=== PATIENT | female | born 1960 | race Caucasian/White ===

== ENCOUNTER 2016-03-18 16:18 | Emergency (ER) | payer BC ==
[~2016-03-18 16:18] MED LIST: MULTCAP PO; OMEP40CA2 PO; VESI10TA PO; [UNRECOGNIZED DRUG - CODE] TD; [UNRECOGNIZED DRUG - OTHER] PO
[2016-03-18 17:23] LABS: BASO % 0.3 % (0.0-1.0); EOS # 0.3 K/mm3 (0.0-0.50); EOS % 4.8 % (0.0-3.0); LARGE UNSTAINED CELL # 0.1 K/mm3 (0.0-0.4); LARGE UNSTAINED CELL % 1.8 % (0.0-4.0); LYMPH # 1.5 K/mm3 (1.5-4.5); LYMPH % 24.5 % (24.0-44.0); MEAN CORPUSCULAR HGB CONC 32.9 g/dl (32.0-36.5); MEAN CORPUSCULAR VOLUME 85.3 fl (80.0-96.0); MONO # 0.4 K/mm3 (0.0-0.8); MONO % 6.5 % (0.0-5.0); NEUTROPHILS # 3.7 K/mm3 (1.8-7.7); NEUTROPHILS % 62.1 % (36.0-66.0); PLATELET COUNT, AUTOMATED 263 k/mm3 (150-450); RED CELL DISTRIBUTION WIDTH 13.1 % (11.5-14.5)
[2016-03-18 17:49] LABS: ALBUMIN 3.7 GM/DL (3.2-5.2); ALBUMIN/GLOBULIN RATIO 1.03 (1.00-1.93); ALKALINE PHOSPHATASE 88 U/L (45-117); ALT/SGPT 38 U/L (12-78); AMYLASE 70 U/L (25-115); ANION GAP 6 MEQ/L (8-16); AST/SGOT 26 U/L (15-37); BILIRUBIN,DIRECT 0.1 MG/DL (0.0-0.2); BILIRUBIN,TOTAL 0.4 MG/DL (0.2-1.0); BLOOD UREA NITROGEN 10 MG/DL (7-18); CALCIUM LEVEL 8.5 MG/DL (8.5-10.1); CARBON DIOXIDE LEVEL 29 MEQ/L (21-32); CHLORIDE LEVEL 107 MEQ/L (98-107); CREATININE FOR GFR 0.69 MG/DL (0.55-1.02); GLOMERULAR FILTRATION RATE > 60.0 (>51); GLUCOSE, FASTING 90 MG/DL (70-105); POTASSIUM SERUM 4.5 MEQ/L (3.5-5.1); SODIUM LEVEL 142 MEQ/L (136-145); TOTAL PROTEIN 7.3 GM/DL (6.4-8.2)
[2016-03-18] MEDS ORDERED: ISOVUE-370 76% 100ML VIAL (Q9967) As Ordered ONE (17:59)
--- NOTE | 2016-03-18 19:00 | REPUSA ---
CLINICAL HISTORY: Left lower quadrant pain. TECHNIQUE: Multiple axial CT images were obtained through the abdomen and pelvis after administratio n of intravenous contrast material. Oral contrast was not administered. FINDINGS: There are several tiny hepatic hypodense lesions present most compatible with small cysts versus bryce ngiomas. There is no intra or extrahepatic biliary ductal dilatation. The spleen is normal. Status post cholecystectomy. The pancreas is of normal contour and attenuation characteristics. There is n o evidence of adrenal mass. Both kidneys demonstrate prompt and equal nephrograms. The kidneys are normal in size, shape and con figuration. There is no evidence of renal or ureteral mass. No renal or ureteral calculi are identi fied. There is no hydroureter or hydronephrosis. No evidence for appendicitis. There is evidence of relatively severe circumferential wall thickening involving loops of jejunum and ileum compatible with enteritis. Scattered diverticulosis is noted i nvolving sigmoid and distal descending colon without evidence of diverticulitis. No evidence for sma ll or large bowel obstruction. There is no evidence of abdominal ascites or lymphadenopathy. There is no evidence of intrinsic or extrinsic bladder mass. There is no pelvic ascites or lymphaden opathy. Uterus and ovaries are unremarkable. Confluent opacities are noted in the right lower lobe compatible with developing pneumonia. Scarring is seen in the lingula at both lung bases. Images of the lung bases show no evidence of pleural or pa renchymal mass. There are no pleural effusions. The bony structures are free of lytic or blastic les ions. IMPRESSION: 1. Evidence of enteritis, infectious and inflammatory etiologies considered. 2. Developing right lower lobe pneumonia. 3. Additional findings as above. Thank you for your kind referral of this patient. We appreciate the opportunity to participate in thi s patient's care.
--- NOTE | 2016-03-18 19:27 | EDDOCDS ---
Physician Documentation [facility] Name: Chela Torres Age: 55 yrs Sex: Female : 1960 Arrival Date: 03/18/2016 Time: 16:18 Bed TR8 Private MD: Jatinder Garner Disposition: 03/18/16 19:07 Discharged to Home/Self Care. Impression: Other viral enteritis, Pneumonia due to other infectious organisms, not elsewhere classified. - Condition is Stable. - Discharge Instructions: Clear Liquid Diet, Viral Gastroenteritis. - Prescriptions for [place] 5- 325 mg Oral Tablet - take 1 tablet by ORAL route every 6 hours As needed MDD: 4 tabs; 20 tablet. Moxifloxacin 400 mg Oral Tablet - take 1 tablet by ORAL route once daily; 10 tablet. - Medication Reconciliation, Local Pharmacy Hours form. - Follow up: Jatinder Garner; When: 2 - 3 days. - Problem is new. - Symptoms have improved. Historical: - Allergies: no known allergies; - Home Meds: 1. fluoxetine 20 mg Oral cap 3 caps once daily 2. dicyclomine 10 mg Oral cap 2 caps every 6 hours as needed 3. Cipro 500 mg Oral tab 1 tab every 12 hours - PMHx: Depression; Diverticulitis; - PSHx: ; D & C; Appendectomy; Cholecystectomy; cyst removed; - Social history: Smoking status: Patient states was never smoker of tobacco. No barriers to communication noted, The patient speaks fluent Paraguayan, Speaks appropriately for age. - Family history: Not pertinent. - : The pt / caregiver states he / she is not on anticoagulants. Home medication list is obtained from the patient. - Exposure Risk Screening:: None identified. Vital Signs: 03/18 16:19 BP 147 / 68; Pulse 88; Resp 16; Temp 97.8(T); Pulse Ox 99% on R/A; Weight 81.65 kg / sew 180.01 lbs; Height 5 ft. 1 in. (154.94 cm); Pain 7/10; 19:25 BP 117 / 68; Pulse 85; Resp 18; Temp 98(T); Pulse Ox 99% on R/A; rs3 16:19 Body Mass Index 34.01 (81.65 kg, 154.94 cm) sew MDM: 16:35 IV Saline Lock ordered. sd1 16:35 NS 0.9% 1000 ml IV at 150 mL/hr continuous ordered. sd1 16:36 Amylase Ordered. EDMS 16:36 Basic Metabolic Profile Ordered. EDMS 16:36 CBC with Diff Ordered. EDMS 16:36 Lipase Ordered. EDMS 16:36 Liver Profile Ordered. EDMS 16:36 CT ABD & PELVIS: IV Contrast Only Ordered. EDMS 16:36 NOTHING BY MOUTH+DIET ordered. EDMS 17:21 Financial registration complete. lg 17:23 [facility] Payment Agreement was scanned into [employer] and attached to record. lg 17:37 CBC with Diff Reviewed. sd1 17:55 Basic Metabolic Profile Reviewed. sd1 17:55 Amylase Reviewed. sd1 17:55 Lipase Reviewed. sd1 17:55 Liver Profile Reviewed. sd1 Administered Medications: 17:14 Drug: NS 0.9% 1000 ml [sodium chloride 0.9 % intravenous solution] Route: IV; Rate: 150 ms2 mL/hr; Site: right antecubital; 19:26 Follow up: IV Status: Completed infusion rs3 Signatures: Dispatcher [employer] EDMT Leila Shelley MD MD sd1 Maurizio Perez, Reg Reg lg John Serna RN RN mlb1 Alesha Arnold RN RN rs3 Mj Garcia RN ms2 The chart was reviewed and I authenticate all verbal orders and agree with the evaluation and treatment provided.Attachments: 17:23 [facility] Payment Agreement lg MTDD
--- NOTE | 2016-03-18 19:27 | EDDOCDS ---
Nurse's Notes [facility] Name: Chela Torres Age: 55 yrs Sex: Female : 1960 Arrival Date: 03/18/2016 Time: 16:18 Bed TR8 Private MD: Jatinder Garner Diagnosis: Other viral enteritis;Pneumonia due to other infectious organisms, not elsewhere classified Presentation: 03/18 16:23 Presenting complaint: Patient states: LLQ pain began Tuesday. Adult Sepsis Screening: mlb1 The patient does not have new or worsening altered mentation. Patient's respiratory rate is less than 22. Systolic blood pressure is greater than 100. Patient has a qSOFA score of 0- Negative Sepsis Screen. Suicide/Homicide risk assessment- the patient denies having any suicidal and/or homicidal ideations and does not present with any other emotional, behavioral or mental health complaints. Status: Patient is not a job service specialist or dependent. Transition of care: patient was not received from another setting of care. 16:23 Acuity: NIKUNJ Level 3 mlb1 16:23 Method Of Arrival: Walkin/Carried/Asstd mlb1 Triage Assessment: 16:26 General: Appears in no apparent distress, Behavior is appropriate for age, cooperative. mlb1 Pain: Location: left lower quadrant Pain currently is 7 out of 10 on a pain scale. At worst was 10 out of 10 on a pain scale. Aggravated by increased activity. HIV screening NA for this visit Offered previously. GI:. Historical: - Allergies: no known allergies; - Home Meds: 1. fluoxetine 20 mg Oral cap 3 caps once daily 2. dicyclomine 10 mg Oral cap 2 caps every 6 hours as needed 3. Cipro 500 mg Oral tab 1 tab every 12 hours - PMHx: Depression; Diverticulitis; - PSHx: ; D & C; Appendectomy; Cholecystectomy; cyst removed; - Social history: Smoking status: Patient states was never smoker of tobacco. No barriers to communication noted, The patient speaks fluent Croatian, Speaks appropriately for age. - Family history: Not pertinent. - : The pt / caregiver states he / she is not on anticoagulants. Home medication list is obtained from the patient. - Exposure Risk Screening:: None identified. Screenin:14 Screening information is obtained from the patient. Fall risk: No risks identified. ms2 Assistance ADL's: requires no assistance with activities of daily living. Abuse/DV Screen: The patient / caregiver reports he/she is: not in a situation that causes fear, pain or injury. Nutritional screening: No deficits noted. Advance Directives: Currently, there is no health care proxy. There is no active DNR order. There is no living will. There is no Power of Program Manufacturing Leader. Advance directive information has not previously been placed in an [facility] medical record. Further advance directive information is declined. home support is adequate. Assessment: 17:15 General: Appears in no apparent distress, Behavior is cooperative. Pain: Pain currently ms2 is 5 out of 10 on a pain scale. Neurological: Level of Consciousness is awake, alert, obeys commands. Respiratory: No deficits noted. Airway is patent Respiratory effort is even, unlabored, Respiratory pattern is regular, symmetrical. GI: Abdomen is flat, non- distended. Derm: Skin is pink, warm & dry. Musculoskeletal: Range of motion intact in all extremities. 18:03 General: Appears in no apparent distress, Behavior is cooperative. General: ct done -no ms2 reaction to iv contrast. Neurological: Level of Consciousness is awake, alert, obeys commands. Respiratory: Respiratory effort is even, unlabored. Derm: Skin is pink, warm & dry. Musculoskeletal: No deficits noted. 18:58 General: Verbal report given by Denise Shabazz RN. Assumed care of patient at this time.. kas2 19:24 Reassessment: Patient appears in no apparent distress at this time. Patient denies pain rs3 at this time. Patient states feeling better. Patient states symptoms have improved. 19:26 GI: Bowel sounds present X 4 quads. Abd is soft and non tender X 4 quads. rs3 Vital Signs: 16:19 BP 147 / 68; Pulse 88; Resp 16; Temp 97.8(T); Pulse Ox 99% on R/A; Weight 81.65 kg; sew Height 5 ft. 1 in. (154.94 cm); Pain 7/10; 19:25 BP 117 / 68; Pulse 85; Resp 18; Temp 98(T); Pulse Ox 99% on R/A; rs3 16:19 Body Mass Index 34.01 (81.65 kg, 154.94 cm) [facility] [place] Vitals: 16:19 Log In Time: March 18, 2016 at 16:18. sew ED Course: 16:19 Patient visited by Leila Tapia. sew 16:19 Jatinder Garner is Private Physician. sew 16:19 Patient moved to Waiting sew 16:20 Patient visited by Leila Tapia. sew 16:20 Patient moved to Pre RCE sew 16:23 Patient visited by John Serna, RN. mlb1 16:24 Triage Initiated mlb1 16:26 Sehrin Perez,RN is Primary Nurse. ck1 16:26 Mj Garcia,EMMA is Primary Nurse. ck1 16:26 Patient moved to 13 ck1 16:27 Patient visited by John Serna, EMMA. mlb1 16:27 Leila Shelley MD is Attending Physician. sd1 16:29 Patient visited by Leila Shelley MD. sd1 16:53 Patient visited by Rebeca Reyes PCA. jlf 17:10 Inserted peripheral IV: 20gauge IV in right antecubital area Patient tolerated the ms2 procedure well. No procedures done that require assistance. 17:14 Amylase Sent. ms2 17:14 Basic Metabolic Profile Sent. ms2 17:14 CBC with Diff Sent. ms2 17:14 Lipase Sent. ms2 17:14 Liver Profile Sent. ms2 17:23 [facility] Payment Agreement was scanned into [employer] and attached to record. lg 17:35 Patient visited by Rebeca Reyes PCA. jlf 18:03 The patient / caregiver is instructed regarding the plan of care and ED course. ms2 18:03 IV is patent, is intact, is free of redness or swelling. ms2 18:39 Patient visited by Mj Garcia RN. ms2 18:56 Alba Hernández,RN is Primary Nurse. kas2 18:59 Patient visited by Alba Hernández RN. kas2 19:07 Jatinder Garner is Referral Physician. sd1 19:07 CT ABD & PELVIS: IV Contrast Only Returned. EDMS 19:24 Patient moved to TR8 rs3 Administered Medications: 17:14 Drug: NS 0.9% 1000 ml [sodium chloride 0.9 % intravenous solution] Route: IV; Rate: 150 ms2 mL/hr; Site: right antecubital; 19:26 Follow up: IV Status: Completed infusion rs3 Order Results: Lab Order: Amylase; SPEC'M 03/18/16 17:06 Test: AMYLASE; Value: 70; Range: 25-115; Units: U/L; Status: F Lab Order: Basic Metabolic Profile; SPEC'M 03/18/16 17:06 Test: GLUCOSE, FASTING; Value: 90; Range: 70-105; Units: MG/DL; Status: F Test: BLOOD UREA NITROGEN; Value: 10; Range: 7-18; Units: MG/DL; Status: F Test: CREATININE FOR GFR; Value: 0.69; Range: 0.55-1.02; Units: MG/DL; Status: F Test: GLOMERULAR FILTRATION RATE; Value: > 60.0; Range: >51; Status: F Test: SODIUM LEVEL; Value: 142; Range: 136-145; Units: MEQ/L; Status: F Test: POTASSIUM SERUM; Value: 4.5; Range: 3.5-5.1; Units: MEQ/L; Status: F Test: CHLORIDE LEVEL; Value: 107; Range: 98-107; Units: MEQ/L; Status: F Test: CARBON DIOXIDE LEVEL; Value: 29; Range: 21-32; Units: MEQ/L; Status: F Test: ANION GAP; Value: 6; Range: 8-16; Abnormal: Below low normal; Units: MEQ/L; Status: F Test: CALCIUM LEVEL; Value: 8.5; Range: 8.5-10.1; Units: MG/DL; Status: F Test Note: ; Units are mL/min/1.73 m2 Chronic Kidney Disease Staging per NKF: Stage I & II GFR >=60 Normal to Mildly Decreased Stage III GFR 30-59 Moderately Decreased Stage IV GFR 15-29 Severely Decreased Stage V GFR <15 Very Little GFR Left ESRD GFR <15 on IRRIGATION SERVICE TECHNICIAN Lab Order: CBC with Diff; SPEC'M 03/18/16 17:06 Test: WHITE BLOOD COUNT; Value: 6.0; Range: 4.0-10.0; Units: K/mm3; Status: F Test: RED BLOOD COUNT; Value: 4.26; Range: 4.00-5.40; Units: M/mm3; Status: F Test: HEMOGLOBIN; Value: 11.9; Range: 12.0-16.0; Abnormal: Below low normal; Units: g/dl; Status: F Test: HEMATOCRIT; Value: 36.3; Range: 36.0-47.0; Units: %; Status: F Test: MEAN CORPUSCULAR VOLUME; Value: 85.3; Range: 80.0-96.0; Units: fl; Status: F Test: MEAN CORPUSCULAR HEMOGLOBIN; Value: 28.0; Range: 27.0-33.0; Units: pg; Status: F Test: MEAN CORPUSCULAR HGB CONC; Value: 32.9; Range: 32.0-36.5; Units: g/dl; Status: F Test: RED CELL DISTRIBUTION WIDTH; Value: 13.1; Range: 11.5-14.5; Units: %; Status: F Test: PLATELET COUNT, AUTOMATED; Value: 263; Range: 150-450; Units: k/mm3; Status: F Test: NEUTROPHILS %; Value: 62.1; Range: 36.0-66.0; Units: %; Status: F Test: LYMPH %; Value: 24.5; Range: 24.0-44.0; Units: %; Status: F Test: MONO %; Value: 6.5; Range: 0.0-5.0; Abnormal: Above high normal; Units: %; Status: F Test: EOS %; Value: 4.8; Range: 0.0-3.0; Abnormal: Above high normal; Units: %; Status: F Test: BASO %; Value: 0.3; Range: 0.0-1.0; Units: %; Status: F Test: LARGE UNSTAINED CELL %; Value: 1.8; Range: 0.0-4.0; Units: %; Status: F Test: NEUTROPHILS #; Value: 3.7; Range: 1.8-7.7; Units: K/mm3; Status: F Test: LYMPH #; Value: 1.5; Range: 1.5-4.5; Units: K/mm3; Status: F Test: MONO #; Value: 0.4; Range: 0.0-0.8; Units: K/mm3; Status: F Test: EOS #; Value: 0.3; Range: 0.0-0.50; Units: K/mm3; Status: F Test: BASO #; Value: 0.0; Range: 0.0-0.2; Units: K/mm3; Status: F Test: LARGE UNSTAINED CELL #; Value: 0.1; Range: 0.0-0.4; Units: K/mm3; Status: F Lab Order: Lipase; SPEC'M 03/18/16 17:06 Test: LIPASE; Value: 148; Range: 73-393; Units: U/L; Status: F Lab Order: Liver Profile; SPEC'M 03/18/16 17:06 Test: AST/SGOT; Value: 26; Range: 15-37; Units: U/L; Status: F Test: ALT/SGPT; Value: 38; Range: 12-78; Units: U/L; Status: F Test: ALKALINE PHOSPHATASE; Value: 88; Range: 45-117; Units: U/L; Status: F Test: BILIRUBIN,TOTAL; Value: 0.4; Range: 0.2-1.0; Units: MG/DL; Status: F Test: BILIRUBIN,DIRECT; Value: 0.1; Range: 0.0-0.2; Units: MG/DL; Status: F Test: TOTAL PROTEIN; Value: 7.3; Range: 6.4-8.2; Units: GM/DL; Status: F Test: ALBUMIN; Value: 3.7; Range: 3.2-5.2; Units: GM/DL; Status: F Test: ALBUMIN/GLOBULIN RATIO; Value: 1.03; Range: 1.00-1.93; Status: F Radiology Order: CT ABD & PELVIS: IV Contrast Only Test: CT ABD & PELVIS: IV Contrast Only REASON FOR EXAMINATION: LLQ pain ?diverticulitis; ; CLINICAL HISTORY: Left lower quadrant pain.; ; TECHNIQUE: Multiple axial CT images were obtained through the abdomen and pelvis after administratio; n of intravenous contrast material. Oral contrast was not administered.; ; FINDINGS:; There are several tiny hepatic hypodense lesions present most compatible with small cysts versus bryce; ngiomas. There is no intra or extrahepatic biliary ductal dilatation. The spleen is normal. Status; post cholecystectomy. The pancreas is of normal contour and attenuation characteristics. There is n; o evidence of adrenal mass.; ; Both kidneys demonstrate prompt and equal nephrograms. The kidneys are normal in size, shape and con; figuration. There is no evidence of renal or ureteral mass. No renal or ureteral calculi are identi; fied. There is no hydroureter or hydronephrosis.; ; No evidence for appendicitis. There is evidence of relatively severe circumferential wall thickening; involving loops of jejunum and ileum compatible with enteritis. Scattered diverticulosis is noted i; nvolving sigmoid and distal descending colon without evidence of diverticulitis. No evidence for sma; ll or large bowel obstruction. There is no evidence of abdominal ascites or lymphadenopathy.; ; There is no evidence of intrinsic or extrinsic bladder mass. There is no pelvic ascites or lymphaden; opathy.; ; Uterus and ovaries are unremarkable.; ; Confluent opacities are noted in the right lower lobe compatible with developing pneumonia. Scarring; is seen in the lingula at both lung bases. Images of the lung bases show no evidence of pleural or pa; renchymal mass. There are no pleural effusions. The bony structures are free of lytic or blastic les; ions.; ; IMPRESSION:; 1. Evidence of enteritis, infectious and inflammatory etiologies considered.; 2. Developing right lower lobe pneumonia.; 3. Additional findings as above.; ; Thank you for your kind referral of this patient. We appreciate the opportunity to participate in [facility]; s patient's care.; ; ; ; Outcome: 19:07 Discharge ordered by Provider. sd1 19:25 Discharge Assessment: patient administered narcotics - no. The following High Risk rs3 Discharge criteria are identified: None. Discharged to home ambulatory. Condition: stable. Discharge instructions given to patient, Instructed on discharge instructions, follow up and referral plans. medication usage, Demonstrated understanding of instructions, medications, Pt was receptive of discharge instructions/ teaching. Prescriptions given X 2. CT Study completed. Property :Personal belongings accompany Pt. 19:27 Patient left the ED. rs3 Signatures: Dispatcher [employer] EDMS Leila Shelley MD MD sd1 Mj Garcia,EMMA RN ms2 Maurizio Perez, David Reg John Mccauley RN RN mlb1 Diane Cr RN RN ck1 Alesha Arnold RN RN rs3 Leila Tapia Jordain, RUSSELL PARACHUTE MENDER jlf Alba Hernández RN RN kas2 Corrections: (The following items were deleted from the chart) 19:27 19:25 No special radiology studies were completed rs3 rs3 MTDD
--- NOTE | 2016-03-20 20:27 | EDDOCDS ---
Nurse's Notes [facility] Name: Chela Torres Age: 55 yrs Sex: Female : 1960 Arrival Date: 03/18/2016 Time: 16:18 Bed TR8 Private MD: Jatinder Garner Diagnosis: Other viral enteritis;Pneumonia due to other infectious organisms, not elsewhere classified Presentation: 03/18 16:23 Presenting complaint: Patient states: LLQ pain began Tuesday. Adult Sepsis Screening: mlb1 The patient does not have new or worsening altered mentation. Patient's respiratory rate is less than 22. Systolic blood pressure is greater than 100. Patient has a qSOFA score of 0- Negative Sepsis Screen. Suicide/Homicide risk assessment- the patient denies having any suicidal and/or homicidal ideations and does not present with any other emotional, behavioral or mental health complaints. Status: Patient is not a financial services counselor or dependent. Transition of care: patient was not received from another setting of care. 16:23 Acuity: NIKUNJ Level 3 mlb1 16:23 Method Of Arrival: Walkin/Carried/Asstd mlb1 Triage Assessment: 16:26 General: Appears in no apparent distress, Behavior is appropriate for age, cooperative. mlb1 Pain: Location: left lower quadrant Pain currently is 7 out of 10 on a pain scale. At worst was 10 out of 10 on a pain scale. Aggravated by increased activity. HIV screening NA for this visit Offered previously. GI:. Historical: - Allergies: no known allergies; - Home Meds: 1. fluoxetine 20 mg Oral cap 3 caps once daily 2. dicyclomine 10 mg Oral cap 2 caps every 6 hours as needed 3. Cipro 500 mg Oral tab 1 tab every 12 hours - PMHx: Depression; Diverticulitis; - PSHx: ; D & C; Appendectomy; Cholecystectomy; cyst removed; - Social history: Smoking status: Patient states was never smoker of tobacco. No barriers to communication noted, The patient speaks fluent Turkish, Speaks appropriately for age. - Family history: Not pertinent. - : The pt / caregiver states he / she is not on anticoagulants. Home medication list is obtained from the patient. - Exposure Risk Screening:: None identified. Screenin:14 Screening information is obtained from the patient. Fall risk: No risks identified. ms2 Assistance ADL's: requires no assistance with activities of daily living. Abuse/DV Screen: The patient / caregiver reports he/she is: not in a situation that causes fear, pain or injury. Nutritional screening: No deficits noted. Advance Directives: Currently, there is no health care proxy. There is no active DNR order. There is no living will. There is no Power of Ferryboat Helper. Advance directive information has not previously been placed in an [facility] medical record. Further advance directive information is declined. home support is adequate. Assessment: 17:15 General: Appears in no apparent distress, Behavior is cooperative. Pain: Pain currently ms2 is 5 out of 10 on a pain scale. Neurological: Level of Consciousness is awake, alert, obeys commands. Respiratory: No deficits noted. Airway is patent Respiratory effort is even, unlabored, Respiratory pattern is regular, symmetrical. GI: Abdomen is flat, non- distended. Derm: Skin is pink, warm & dry. Musculoskeletal: Range of motion intact in all extremities. 18:03 General: Appears in no apparent distress, Behavior is cooperative. General: ct done -no ms2 reaction to iv contrast. Neurological: Level of Consciousness is awake, alert, obeys commands. Respiratory: Respiratory effort is even, unlabored. Derm: Skin is pink, warm & dry. Musculoskeletal: No deficits noted. 18:58 General: Verbal report given by Denise Shabazz RN. Assumed care of patient at this time.. kas2 19:24 Reassessment: Patient appears in no apparent distress at this time. Patient denies pain rs3 at this time. Patient states feeling better. Patient states symptoms have improved. 19:26 GI: Bowel sounds present X 4 quads. Abd is soft and non tender X 4 quads. rs3 Vital Signs: 16:19 BP 147 / 68; Pulse 88; Resp 16; Temp 97.8(T); Pulse Ox 99% on R/A; Weight 81.65 kg; sew Height 5 ft. 1 in. (154.94 cm); Pain 7/10; 19:25 BP 117 / 68; Pulse 85; Resp 18; Temp 98(T); Pulse Ox 99% on R/A; rs3 16:19 Body Mass Index 34.01 (81.65 kg, 154.94 cm) [facility] [place] Vitals: 16:19 Log In Time: March 18, 2016 at 16:18. sew ED Course: 16:19 Patient visited by Leila Tapia. sew 16:19 Jatinder Garner is Private Physician. sew 16:19 Patient moved to Waiting sew 16:20 Patient visited by Leila Tapia. sew 16:20 Patient moved to Pre RCE sew 16:23 Patient visited by John Serna, RN. mlb1 16:24 Triage Initiated mlb1 16:26 Sherin Perez,RN is Primary Nurse. ck1 16:26 Mj Garcia,EMMA is Primary Nurse. ck1 16:26 Patient moved to 13 ck1 16:27 Patient visited by John Serna, EMMA. mlb1 16:27 Leila Shelley MD is Attending Physician. sd1 16:29 Patient visited by Leila Shelley MD. sd1 16:53 Patient visited by Rebeca Reyes PCA. jlf 17:10 Inserted peripheral IV: 20gauge IV in right antecubital area Patient tolerated the ms2 procedure well. No procedures done that require assistance. 17:14 Amylase Sent. ms2 17:14 Basic Metabolic Profile Sent. ms2 17:14 CBC with Diff Sent. ms2 17:14 Lipase Sent. ms2 17:14 Liver Profile Sent. ms2 17:23 [facility] Payment Agreement was scanned into [employer] and attached to record. lg 17:35 Patient visited by Rebeca Reyes PCA. jlf 18:03 The patient / caregiver is instructed regarding the plan of care and ED course. ms2 18:03 IV is patent, is intact, is free of redness or swelling. ms2 18:39 Patient visited by Mj Garcia RN. ms2 18:56 Alba Hernández,RN is Primary Nurse. kas2 18:59 Patient visited by Alba Hernández RN. kas2 19:07 Jatinder Garner is Referral Physician. sd1 19:07 CT ABD & PELVIS: IV Contrast Only Returned. EDMS 19:24 Patient moved to TR8 rs3 03/19 09:06 Radiology Report was scanned into [employer] and attached to record. gb 10:33 T-Sheet-- Draft Copy was scanned into [employer] and attached to record. gb Administered Medications: 03/18 17:14 Drug: NS 0.9% 1000 ml [sodium chloride 0.9 % intravenous solution] Route: IV; Rate: 150 ms2 mL/hr; Site: right antecubital; 19:26 Follow up: IV Status: Completed infusion rs3 Order Results: Lab Order: Amylase; SPEC'M 03/18/16 17:06 Test: AMYLASE; Value: 70; Range: 25-115; Units: U/L; Status: F Lab Order: Basic Metabolic Profile; SPEC'03/18/16 17:06 Test: GLUCOSE, FASTING; Value: 90; Range: 70-105; Units: MG/DL; Status: F Test: BLOOD UREA NITROGEN; Value: 10; Range: 7-18; Units: MG/DL; Status: F Test: CREATININE FOR GFR; Value: 0.69; Range: 0.55-1.02; Units: MG/DL; Status: F Test: GLOMERULAR FILTRATION RATE; Value: > 60.0; Range: >51; Status: F Test: SODIUM LEVEL; Value: 142; Range: 136-145; Units: MEQ/L; Status: F Test: POTASSIUM SERUM; Value: 4.5; Range: 3.5-5.1; Units: MEQ/L; Status: F Test: CHLORIDE LEVEL; Value: 107; Range: 98-107; Units: MEQ/L; Status: F Test: CARBON DIOXIDE LEVEL; Value: 29; Range: 21-32; Units: MEQ/L; Status: F Test: ANION GAP; Value: 6; Range: 8-16; Abnormal: Below low normal; Units: MEQ/L; Status: F Test: CALCIUM LEVEL; Value: 8.5; Range: 8.5-10.1; Units: MG/DL; Status: F Test Note: ; Units are mL/min/1.73 m2 Chronic Kidney Disease Staging per NKF: Stage I & II GFR >=60 Normal to Mildly Decreased Stage III GFR 30-59 Moderately Decreased Stage IV GFR 15-29 Severely Decreased Stage V GFR <15 Very Little GFR Left ESRD GFR <15 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 Lab Order: CBC with Diff; SPEC03/18/16 17:06 Test: WHITE BLOOD COUNT; Value: 6.0; Range: 4.0-10.0; Units: K/mm3; Status: F Test: RED BLOOD COUNT; Value: 4.26; Range: 4.00-5.40; Units: M/mm3; Status: F Test: HEMOGLOBIN; Value: 11.9; Range: 12.0-16.0; Abnormal: Below low normal; Units: g/dl; Status: F Test: HEMATOCRIT; Value: 36.3; Range: 36.0-47.0; Units: %; Status: F Test: MEAN CORPUSCULAR VOLUME; Value: 85.3; Range: 80.0-96.0; Units: fl; Status: F Test: MEAN CORPUSCULAR HEMOGLOBIN; Value: 28.0; Range: 27.0-33.0; Units: pg; Status: F Test: MEAN CORPUSCULAR HGB CONC; Value: 32.9; Range: 32.0-36.5; Units: g/dl; Status: F Test: RED CELL DISTRIBUTION WIDTH; Value: 13.1; Range: 11.5-14.5; Units: %; Status: F Test: PLATELET COUNT, AUTOMATED; Value: 263; Range: 150-450; Units: k/mm3; Status: F Test: NEUTROPHILS %; Value: 62.1; Range: 36.0-66.0; Units: %; Status: F Test: LYMPH %; Value: 24.5; Range: 24.0-44.0; Units: %; Status: F Test: MONO %; Value: 6.5; Range: 0.0-5.0; Abnormal: Above high normal; Units: %; Status: F Test: EOS %; Value: 4.8; Range: 0.0-3.0; Abnormal: Above high normal; Units: %; Status: F Test: BASO %; Value: 0.3; Range: 0.0-1.0; Units: %; Status: F Test: LARGE UNSTAINED CELL %; Value: 1.8; Range: 0.0-4.0; Units: %; Status: F Test: NEUTROPHILS #; Value: 3.7; Range: 1.8-7.7; Units: K/mm3; Status: F Test: LYMPH #; Value: 1.5; Range: 1.5-4.5; Units: K/mm3; Status: F Test: MONO #; Value: 0.4; Range: 0.0-0.8; Units: K/mm3; Status: F Test: EOS #; Value: 0.3; Range: 0.0-0.50; Units: K/mm3; Status: F Test: BASO #; Value: 0.0; Range: 0.0-0.2; Units: K/mm3; Status: F Test: LARGE UNSTAINED CELL #; Value: 0.1; Range: 0.0-0.4; Units: K/mm3; Status: F Lab Order: Lipase; SPEC'M 03/18/16 17:06 Test: LIPASE; Value: 148; Range: 73-393; Units: U/L; Status: F Lab Order: Liver Profile; SPEC'M 03/18/16 17:06 Test: AST/SGOT; Value: 26; Range: 15-37; Units: U/L; Status: F Test: ALT/SGPT; Value: 38; Range: 12-78; Units: U/L; Status: F Test: ALKALINE PHOSPHATASE; Value: 88; Range: 45-117; Units: U/L; Status: F Test: BILIRUBIN,TOTAL; Value: 0.4; Range: 0.2-1.0; Units: MG/DL; Status: F Test: BILIRUBIN,DIRECT; Value: 0.1; Range: 0.0-0.2; Units: MG/DL; Status: F Test: TOTAL PROTEIN; Value: 7.3; Range: 6.4-8.2; Units: GM/DL; Status: F Test: ALBUMIN; Value: 3.7; Range: 3.2-5.2; Units: GM/DL; Status: F Test: ALBUMIN/GLOBULIN RATIO; Value: 1.03; Range: 1.00-1.93; Status: F Radiology Order: CT ABD & PELVIS: IV Contrast Only Test: CT ABD & PELVIS: IV Contrast Only REASON FOR EXAMINATION: LLQ pain ?diverticulitis; ; CLINICAL HISTORY: Left lower quadrant pain.; ; TECHNIQUE: Multiple axial CT images were obtained through the abdomen and pelvis after administratio; n of intravenous contrast material. Oral contrast was not administered.; ; FINDINGS:; There are several tiny hepatic hypodense lesions present most compatible with small cysts versus bryce; ngiomas. There is no intra or extrahepatic biliary ductal dilatation. The spleen is normal. Status; post cholecystectomy. The pancreas is of normal contour and attenuation characteristics. There is n; o evidence of adrenal mass.; ; Both kidneys demonstrate prompt and equal nephrograms. The kidneys are normal in size, shape and con; figuration. There is no evidence of renal or ureteral mass. No renal or ureteral calculi are identi; fied. There is no hydroureter or hydronephrosis.; ; No evidence for appendicitis. There is evidence of relatively severe circumferential wall thickening; involving loops of jejunum and ileum compatible with enteritis. Scattered diverticulosis is noted i; nvolving sigmoid and distal descending colon without evidence of diverticulitis. No evidence for sma; ll or large bowel obstruction. There is no evidence of abdominal ascites or lymphadenopathy.; ; There is no evidence of intrinsic or extrinsic bladder mass. There is no pelvic ascites or lymphaden; opathy.; ; Uterus and ovaries are unremarkable.; ; Confluent opacities are noted in the right lower lobe compatible with developing pneumonia. Scarring; is seen in the lingula at both lung bases. Images of the lung bases show no evidence of pleural or pa; renchymal mass. There are no pleural effusions. The bony structures are free of lytic or blastic les; ions.; ; IMPRESSION:; 1. Evidence of enteritis, infectious and inflammatory etiologies considered.; 2. Developing right lower lobe pneumonia.; 3. Additional findings as above.; ; Thank you for your kind referral of this patient. We appreciate the opportunity to participate in [facility]; s patient's care.; ; ; ; Outcome: 19:07 Discharge ordered by Provider. sd1 19:25 Discharge Assessment: patient administered narcotics - no. The following High Risk rs3 Discharge criteria are identified: None. Discharged to home ambulatory. Condition: stable. Discharge instructions given to patient, Instructed on discharge instructions, follow up and referral plans. medication usage, Demonstrated understanding of instructions, medications, Pt was receptive of discharge instructions/ teaching. Prescriptions given X 2. CT Study completed. Property :Personal belongings accompany Pt. 19:27 Patient left the ED. rs3 Signatures: Dispatcher [employer] EDMS Leila Shelley MD MD sd1 Mj Garcia,RN RN ms2 Tammy Simmons, Reg Reg gb Maurizio Perez, Reg Reg lg John Serna RN RN mlb1 Diane CrRN RN ck1 Alesha ArnoldRN RN rs3 Leila Tapia Jordain, [employer] Alba Del RosarioRN RN kas2 Corrections: (The following items were deleted from the chart) 19:27 19:25 No special radiology studies were completed rs3 rs3 Chart Complete MTDD
--- NOTE | 2016-03-20 20:27 | EDDOCDS ---
Physician Documentation [facility] Name: Chela Torres Age: 55 yrs Sex: Female : 1960 Arrival Date: 03/18/2016 Time: 16:18 Bed TR8 Private MD: Jaitnder Garner Disposition: 03/18/16 19:07 Discharged to Home/Self Care. Impression: Other viral enteritis, Pneumonia due to other infectious organisms, not elsewhere classified. - Condition is Stable. - Discharge Instructions: Clear Liquid Diet, Viral Gastroenteritis. - Prescriptions for [place] 5- 325 mg Oral Tablet - take 1 tablet by ORAL route every 6 hours As needed MDD: 4 tabs; 20 tablet. Moxifloxacin 400 mg Oral Tablet - take 1 tablet by ORAL route once daily; 10 tablet. - Medication Reconciliation, Local Pharmacy Hours form. - Follow up: Jatinder Garner; When: 2 - 3 days. - Problem is new. - Symptoms have improved. Historical: - Allergies: no known allergies; - Home Meds: 1. fluoxetine 20 mg Oral cap 3 caps once daily 2. dicyclomine 10 mg Oral cap 2 caps every 6 hours as needed 3. Cipro 500 mg Oral tab 1 tab every 12 hours - PMHx: Depression; Diverticulitis; - PSHx: ; D & C; Appendectomy; Cholecystectomy; cyst removed; - Social history: Smoking status: Patient states was never smoker of tobacco. No barriers to communication noted, The patient speaks fluent [place] Korean, Speaks appropriately for age. - Family history: Not pertinent. - : The pt / caregiver states he / she is not on anticoagulants. Home medication list is obtained from the patient. - Exposure Risk Screening:: None identified. Vital Signs: 03/18 16:19 BP 147 / 68; Pulse 88; Resp 16; Temp 97.8(T); Pulse Ox 99% on R/A; Weight 81.65 kg / sew 180.01 lbs; Height 5 ft. 1 in. (154.94 cm); Pain 7/10; 19:25 BP 117 / 68; Pulse 85; Resp 18; Temp 98(T); Pulse Ox 99% on R/A; rs3 16:19 Body Mass Index 34.01 (81.65 kg, 154.94 cm) sew MDM: 16:35 IV Saline Lock ordered. sd1 16:35 NS 0.9% 1000 ml IV at 150 mL/hr continuous ordered. sd1 16:36 Amylase Ordered. EDMS 16:36 Basic Metabolic Profile Ordered. EDMS 16:36 CBC with Diff Ordered. EDMS 16:36 Lipase Ordered. EDMS 16:36 Liver Profile Ordered. EDMS 16:36 CT ABD & PELVIS: IV Contrast Only Ordered. EDMS 16:36 NOTHING BY MOUTH+DIET ordered. EDMS 17:21 Financial registration complete. lg 17:23 [facility] Payment Agreement was scanned into [employer] and attached to record. lg 17:37 CBC with Diff Reviewed. sd1 17:55 Basic Metabolic Profile Reviewed. sd1 17:55 Amylase Reviewed. sd1 17:55 Lipase Reviewed. sd1 17:55 Liver Profile Reviewed. sd1 03/19 09:06 Radiology Report was scanned into [employer] and attached to record. gb 10:33 T-Sheet-- Draft Copy was scanned into [employer] and attached to record. gb Administered Medications: 03/18 17:14 Drug: NS 0.9% 1000 ml [sodium chloride 0.9 % intravenous solution] Route: IV; Rate: 150 ms2 mL/hr; Site: right antecubital; 19:26 Follow up: IV Status: Completed infusion rs3 Signatures: Dispatcher [employer] EDNJ Leila Shelley MD MD sd1 Tammy Simmons, Reg Reg gb Maurizio Perez, Reg Reg lg John Serna RN RN mlb1 Alesha Arnold RN RN rs3 Mj Garcia RN ms2 The chart was reviewed and I authenticate all verbal orders and agree with the evaluation and treatment provided.Attachments: 17:23 [facility] Payment Agreement lg 10:33 T-Sheet-- Draft Copy gb Chart Complete MTDD
--- NOTE | 2016-03-20 20:27 | EDDOCDS ---
Physician Documentation [facility] Name: Chela Torres Age: 55 yrs Sex: Female : 1960 Arrival Date: 03/18/2016 Time: 16:18 Bed TR8 Private MD: Jatinder Garner Disposition: 03/18/16 19:07 Discharged to Home/Self Care. Impression: Other viral enteritis, Pneumonia due to other infectious organisms, not elsewhere classified. - Condition is Stable. - Discharge Instructions: Clear Liquid Diet, Viral Gastroenteritis. - Prescriptions for [place] 5- 325 mg Oral Tablet - take 1 tablet by ORAL route every 6 hours As needed MDD: 4 tabs; 20 tablet. Moxifloxacin 400 mg Oral Tablet - take 1 tablet by ORAL route once daily; 10 tablet. - Medication Reconciliation, Local Pharmacy Hours form. - Follow up: Jatinder Garner; When: 2 - 3 days. - Problem is new. - Symptoms have improved. Historical: - Allergies: no known allergies; - Home Meds: 1. fluoxetine 20 mg Oral cap 3 caps once daily 2. dicyclomine 10 mg Oral cap 2 caps every 6 hours as needed 3. Cipro 500 mg Oral tab 1 tab every 12 hours - PMHx: Depression; Diverticulitis; - PSHx: ; D & C; Appendectomy; Cholecystectomy; cyst removed; - Social history: Smoking status: Patient states was never smoker of tobacco. No barriers to communication noted, The patient speaks fluent [place], Speaks appropriately for age. - Family history: Not pertinent. - : The pt / caregiver states he / she is not on anticoagulants. Home medication list is obtained from the patient. - Exposure Risk Screening:: None identified. Vital Signs: 03/18 16:19 BP 147 / 68; Pulse 88; Resp 16; Temp 97.8(T); Pulse Ox 99% on R/A; Weight 81.65 kg / sew 180.01 lbs; Height 5 ft. 1 in. (154.94 cm); Pain 7/10; 19:25 BP 117 / 68; Pulse 85; Resp 18; Temp 98(T); Pulse Ox 99% on R/A; rs3 16:19 Body Mass Index 34.01 (81.65 kg, 154.94 cm) sew MDM: 16:35 IV Saline Lock ordered. sd1 16:35 NS 0.9% 1000 ml IV at 150 mL/hr continuous ordered. sd1 16:36 Amylase Ordered. EDMS 16:36 Basic Metabolic Profile Ordered. EDMS 16:36 CBC with Diff Ordered. EDMS 16:36 Lipase Ordered. EDMS 16:36 Liver Profile Ordered. EDMS 16:36 CT ABD & PELVIS: IV Contrast Only Ordered. EDMS 16:36 NOTHING BY MOUTH+DIET ordered. EDMS 17:21 Financial registration complete. lg 17:23 [facility] Payment Agreement was scanned into [employer] and attached to record. lg 17:37 CBC with Diff Reviewed. sd1 17:55 Basic Metabolic Profile Reviewed. sd1 17:55 Amylase Reviewed. sd1 17:55 Lipase Reviewed. sd1 17:55 Liver Profile Reviewed. sd1 03/19 09:06 Radiology Report was scanned into [employer] and attached to record. gb 10:33 T-Sheet-- Draft Copy was scanned into [employer] and attached to record. gb Administered Medications: 03/18 17:14 Drug: NS 0.9% 1000 ml [sodium chloride 0.9 % intravenous solution] Route: IV; Rate: 150 ms2 mL/hr; Site: right antecubital; 19:26 Follow up: IV Status: Completed infusion rs3 Signatures: Dispatcher [employer] EDNY Leila Shelley MD MD sd1 Tammy Simmons, Reg Reg gb Mauirzio Perez, Reg Reg lg John Serna RN RN mlb1 Alesha Arnold RN RN rs3 Mj Garcia RN ms2 The chart was reviewed and I authenticate all verbal orders and agree with the evaluation and treatment provided.Attachments: 17:23 [facility] Payment Agreement lg 10:33 T-Sheet-- Draft Copy gb Chart Complete MTDD
== END 2016-03-18 19:27 | disposition home or self-care (01) ==
LOC: M ED 16:18
DX: A08.4 Viral intestinal infection, unspecified (principal); F32.9 Major depressive disorder, single episode, unspecified; K57.32 Diverticulitis of large intestine without perforation or abscess without bleeding; Z79.899 Other long term (current) drug therapy
CPT/HCPCS: 36415; 74177; 80048; 80076; 82150; 83690; 85025; 96360; 96361; 99284; Q9967

== ENCOUNTER → 2016-04-13 | Outpatient (REF) | payer BC | LOC: M SFHCWAGY 13:36 | PROVIDERS: ATTEND Nurse Practitioner Family | DX: Z12.4 Encounter for screening for malignant neoplasm of cervix (principal) ==

== ENCOUNTER → 2017-04-05 | Outpatient (CLI) | payer BC ==
[~2017-04-05] MED LIST changes: +GASTROGRAFIN SOLUTION 30ML (Q9963) As Ordered; +ISOVUE-370 76% 100ML VIAL (Q9967) As Ordered; -MULTCAP PO; -OMEP40CA2 PO; -VESI10TA PO; -[UNRECOGNIZED DRUG - CODE] TD; -[UNRECOGNIZED DRUG - OTHER] PO
== END ==
LOC: M RAD 16:28
DX: K57.30 Diverticulosis of large intestine without perforation or abscess without bleeding (principal); K76.89 Other specified diseases of liver
CPT/HCPCS: Q9963

== ENCOUNTER 2017-04-07 04:18 | Emergency (ER) | payer BC ==
[2017-04-07 05:04] LABS: BASO % 0.3 % (0.0-1.0); EOS # 0.3 10^3/uL (0.0-0.50); EOS % 2.4 % (0.0-3.0); HEMATOCRIT 40.7 % (36.0-47.0); HEMOGLOBIN 12.9 g/dl (12.0-16.0); IMMATURE GRANULOCYTE % 0.3 % (0-3.0); LYMPH # 1.5 10^3/uL (1.5-4.5); LYMPH % 13.2 % (24.0-44.0); MEAN CORPUSCULAR HEMOGLOBIN 27.6 pg (27.0-33.0); MEAN CORPUSCULAR HGB CONC 31.7 g/dl (32.0-36.5); MONO # 0.6 10^3/uL (0.0-0.8); MONO % 5.5 % (0.0-5.0); NEUTROPHILS % 78.3 % (36.0-66.0); PLATELET COUNT, AUTOMATED 290 10^3/uL (150-450); RED BLOOD COUNT 4.68 10^6/uL (4.00-5.40); RED CELL DISTRIBUTION WIDTH 14.6 % (11.5-14.5); WHITE BLOOD COUNT 11.6 10^3/uL (4.0-10.0)
[2017-04-07] MEDS: ONDANSETRON 4MG/2ML VIAL (J2405) IV ×2 (05:05)
[2017-04-07] MEDS: MORPHINE 4 MG/ML 1ML VIAL (J2270) IV ×2 (05:09)
[2017-04-07] MEDS ORDERED: GASTROGRAFIN SOLUTION 30ML (Q9963) As Ordered ×2 (05:20)
[2017-04-07 05:23] LABS: ALBUMIN 3.9 GM/DL (3.2-5.2); ALBUMIN/GLOBULIN RATIO 1.03 (1.00-1.93); ALKALINE PHOSPHATASE 89 U/L (45-117); ALT/SGPT 20 U/L (12-78); ANION GAP 5 MEQ/L (8-16); AST/SGOT 13 U/L (7-37); BILIRUBIN,DIRECT < 0.1 MG/DL (0.0-0.2); BILIRUBIN,TOTAL 0.4 MG/DL (0.2-1.0); BLOOD UREA NITROGEN 11 MG/DL (7-18); CALCIUM LEVEL 8.5 MG/DL (8.5-10.1); CARBON DIOXIDE LEVEL 31 MEQ/L (21-32); CHLORIDE LEVEL 105 MEQ/L (98-107); CREATININE FOR GFR 0.83 MG/DL (0.55-1.30); GLOMERULAR FILTRATION RATE > 60.0 (>51); GLUCOSE, FASTING 99 MG/DL (70-100); LIPASE 167 U/L (73-393); POTASSIUM SERUM 4.1 MEQ/L (3.5-5.1); SODIUM LEVEL 141 MEQ/L (136-145); TOTAL PROTEIN 7.7 GM/DL (6.4-8.2)
[2017-04-07 05:24] LABS: LACTIC ACID SEPSIS PROTOCOL 1.2 MMOL/L (0.4-2.0)
[2017-04-07] MEDS: GASTROGRAFIN SOLUTION 30ML PO ×4 (05:30→05:45)
[2017-04-07] MEDS ORDERED: ISOVUE-370 76% 100ML VIAL (Q9967) As Ordered ×2 (06:32)
[2017-04-07] MEDS: AUGMENTIN 875 MG TAB PO ×2 (08:56)
== END 2017-04-07 09:13 | disposition home or self-care (01) ==
LOC: M ED 04:18
DX: K57.92 Diverticulitis of intestine, part unspecified, without perforation or abscess without bleeding (principal); F33.9 Major depressive disorder, recurrent, unspecified; Z79.899 Other long term (current) drug therapy
CPT/HCPCS: J2270; J2405

== ENCOUNTER 2017-06-14 08:59 | Inpatient (IN) | payer BC ==
[~2017-06-14 08:59] MED LIST changes: -GASTROGRAFIN SOLUTION 30ML (Q9963) As Ordered; -ISOVUE-370 76% 100ML VIAL (Q9967) As Ordered; +LIDOCAINE 2% INJ 100 MG/5 ML SDV (FOR ANES.) As Ordered; +METOCLOPRAMIDE INJ 10MG/2ML VIAL (J2765) As Ordered; +MIDAZOLAM INJ 2 MG/2 ML VIAL (J2250) As Ordered; +ONDANSETRON 4MG/2ML VIAL (J2405) As Ordered; +PROPOFOL 200 MG/20 ML VIAL As Ordered; +ROCURONIUM BROMIDE 50 MG/5 ML VIAL As Ordered; +dexameTHASONE 4 MG/ML 1ML VIAL (J1100) As Ordered; +fentaNYL 250 MCG/5 ML INJECTION (J3010) As Ordered
[2017-06-14] MEDS: PANTOPRAZOLE 40MG INJ (PROTONIX) (C9113) IV (09:00)
[2017-06-14] MEDS ORDERED: BUPIVACAINE HCL 0.25% 10 ML VIAL As Ordered (09:17)
[2017-06-14] MEDS ORDERED: BUPIVACAINE LIPOSOME/PF 1.3% 20 ML VIAL (13.3MG/ML)(EXPAREL) As Ordered (09:18)
[2017-06-14] MEDS: ERTAPENEM SODIUM 1 GM in NS 50 ML IV (09:45)
[2017-06-14] MEDS: LR 1,000 ML IV ×2 (09:57→13:30)
[2017-06-14] MEDS: ERTAPENEM 1 GM INJ (INVanz) (J1335) As Ordered (10:15)
[2017-06-14] MEDS ORDERED: ROCURONIUM BROMIDE 50 MG/5 ML VIAL As Ordered (10:39)
[2017-06-14] MEDS ORDERED: KETOROLAC 60 MG/2 ML VIAL (J1885) As Ordered (10:39)
[2017-06-14] MEDS ORDERED: PHENYLEPHRINE INJ 10MG/ML VIAL (J2370) As Ordered (10:39)
[2017-06-14] MEDS: GLUCAGON FOR INJ 1 MG VIAL (J1610) As Ordered (12:14)
[2017-06-14] MEDS: BUPIVACAINE/EPIN 0.5% 30 ML VIAL As Ordered (12:20)
[2017-06-14] MEDS ORDERED: HYDROmorphone HCL 2 MG/ML 1ML VIAL (J1170) As Ordered (12:37)
[2017-06-14] MEDS ORDERED: NS 1,000 ML IV (13:16)
[2017-06-14] MEDS ORDERED: NEOSTIGMINE 10 MG/10 ML VIAL (J2710) As Ordered (13:29)
[2017-06-14] MEDS ORDERED: GLYCOPYRROLATE INJ 0.2 MG/ML 2 ML VIAL As Ordered (13:29)
[2017-06-14] MEDS ORDERED: NALBUPHINE HCL 10 MG/ML AMP (J2300) IV (13:30)
[2017-06-14] MEDS ORDERED: fentaNYL 100 MCG/2 ML INJECTION (J3010) IV (13:30)
[2017-06-14] MEDS ORDERED: NALOXONE INJ 0.4 MG/1 ML VIAL (J2310) IV (13:30)
[2017-06-14] MEDS ORDERED: METOCLOPRAMIDE INJ 10MG/2ML VIAL (J2765) IV (13:30)
[2017-06-14] MEDS ORDERED: PROMETHAZINE INJ 25 MG/ML VIAL (J2550) IV (13:30)
[2017-06-14] MEDS ORDERED: ONDANSETRON 4MG/2ML VIAL (J2405) IV ×2 (13:30)
[2017-06-14] MEDS ORDERED: KETOROLAC 30 MG/ML VIAL (J1885) As Ordered (13:54)
[2017-06-14] MEDS: KETOROLAC 30 MG/ML VIAL (J1885) IV (14:00)
[2017-06-14 14:13] LABS: ANION GAP 7 MEQ/L (8-16); BLOOD UREA NITROGEN 11 MG/DL (7-18); CALCIUM LEVEL 8.2 MG/DL (8.5-10.1); CARBON DIOXIDE LEVEL 24 MEQ/L (21-32); CHLORIDE LEVEL 108 MEQ/L (98-107); CREATININE FOR GFR 0.89 MG/DL (0.55-1.30); GLOMERULAR FILTRATION RATE > 60.0 (>51); GLUCOSE, FASTING 192 MG/DL (70-100); POTASSIUM SERUM 3.6 MEQ/L (3.5-5.1); SODIUM LEVEL 139 MEQ/L (136-145)
[2017-06-14] MEDS: EPIDURAL/PCA KEYS XX (14:15)
[2017-06-14] MEDS: MORPHINE 1MG/ML IN 0.9% NACL 100ML IV BAG IV (14:15)
[2017-06-14] MEDS: IPRATROPIUM 0.5MG/ALBUTEROL 2.5MG INH SOL UD 3ML (DUONEB)(J7620) NEB ×3 (16:00→20:55)
[2017-06-14] MEDS: NS 1,000 ML IV ×2 (16:44→22:00)
[2017-06-14 20:30] LABS: ANION GAP 3 MEQ/L (8-16); BLOOD UREA NITROGEN 12 MG/DL (7-18); CALCIUM LEVEL 7.9 MG/DL (8.5-10.1); CARBON DIOXIDE LEVEL 28 MEQ/L (21-32); CHLORIDE LEVEL 108 MEQ/L (98-107); GLOMERULAR FILTRATION RATE > 60.0 (>51); GLUCOSE, FASTING 122 MG/DL (70-100); POTASSIUM SERUM 4.5 MEQ/L (3.5-5.1); SODIUM LEVEL 139 MEQ/L (136-145)
[2017-06-14] MEDS: ALVIMOPAN 12 MG CAPSULE (ENTEREG) PO (20:51)
[2017-06-14] MEDS: TOLTERODINE (DETROL) 2 MG TAB PO (20:51)
[2017-06-14] MEDS: FLUoxetine 20 MG CAP PO (20:51)
[2017-06-15 01:31] LABS: ANION GAP 4 MEQ/L (8-16); BLOOD UREA NITROGEN 9 MG/DL (7-18); CALCIUM LEVEL 7.8 MG/DL (8.5-10.1); CARBON DIOXIDE LEVEL 27 MEQ/L (21-32); CHLORIDE LEVEL 110 MEQ/L (98-107); CREATININE FOR GFR 0.64 MG/DL (0.55-1.30); GLOMERULAR FILTRATION RATE > 60.0 (>51); GLUCOSE, FASTING 100 MG/DL (70-100); POTASSIUM SERUM 4.2 MEQ/L (3.5-5.1); SODIUM LEVEL 141 MEQ/L (136-145)
[2017-06-15] MEDS: NS 1,000 ML IV ×3 (07:06→21:31)
[2017-06-15 07:30] LABS: HEMATOCRIT 32.5 % (36.0-47.0); HEMOGLOBIN 10.4 g/dl (12.0-15.5); MEAN CORPUSCULAR HEMOGLOBIN 27.6 pg (27.0-33.0); MEAN CORPUSCULAR VOLUME 86.2 fl (80.0-96.0); PLATELET COUNT, AUTOMATED 284 10^3/uL (150-450); RED BLOOD COUNT 3.77 10^6/uL (4.00-5.40); RED CELL DISTRIBUTION WIDTH 14.4 % (11.5-14.5); WHITE BLOOD COUNT 8.8 10^3/uL (4.0-10.0)
[2017-06-15] MEDS: IPRATROPIUM 0.5MG/ALBUTEROL 2.5MG INH SOL UD 3ML (DUONEB)(J7620) NEB ×4 (07:33→20:00)
[2017-06-15 07:42] LABS: ANION GAP 7 MEQ/L (8-16); BLOOD UREA NITROGEN 10 MG/DL (7-18); CALCIUM LEVEL 7.9 MG/DL (8.5-10.1); CARBON DIOXIDE LEVEL 26 MEQ/L (21-32); CHLORIDE LEVEL 109 MEQ/L (98-107); GLOMERULAR FILTRATION RATE > 60.0 (>51); GLUCOSE, FASTING 91 MG/DL (70-100); POTASSIUM SERUM 3.9 MEQ/L (3.5-5.1); SODIUM LEVEL 142 MEQ/L (136-145)
[2017-06-15] MEDS: ALVIMOPAN 12 MG CAPSULE (ENTEREG) PO ×2 (08:15→21:27)
[2017-06-15] MEDS: PANTOPRAZOLE 40MG INJ (PROTONIX) (C9113) IV (08:16)
[2017-06-15] MEDS: KETOROLAC 30 MG/ML VIAL (J1885) IV (08:17)
[2017-06-15] MEDS: ERTAPENEM SODIUM 1 GM in NS MINI-BAG PLUS 50 ML IV (08:32)
[2017-06-15 13:58] LABS: ANION GAP 5 MEQ/L (8-16); BLOOD UREA NITROGEN 11 MG/DL (7-18); CALCIUM LEVEL 7.7 MG/DL (8.5-10.1); CARBON DIOXIDE LEVEL 28 MEQ/L (21-32); CHLORIDE LEVEL 111 MEQ/L (98-107); CREATININE FOR GFR 0.68 MG/DL (0.55-1.30); GLOMERULAR FILTRATION RATE > 60.0 (>51); GLUCOSE, FASTING 83 MG/DL (70-100); POTASSIUM SERUM 4.2 MEQ/L (3.5-5.1); SODIUM LEVEL 144 MEQ/L (136-145)
[2017-06-15 20:01] LABS: ANION GAP 4 MEQ/L (8-16); BLOOD UREA NITROGEN 12 MG/DL (7-18); CALCIUM LEVEL 7.8 MG/DL (8.5-10.1); CARBON DIOXIDE LEVEL 28 MEQ/L (21-32); CHLORIDE LEVEL 112 MEQ/L (98-107); CREATININE FOR GFR 0.64 MG/DL (0.55-1.30); GLOMERULAR FILTRATION RATE > 60.0 (>51); GLUCOSE, FASTING 91 MG/DL (70-100); SODIUM LEVEL 144 MEQ/L (136-145)
[2017-06-15] MEDS: FLUoxetine 20 MG CAP PO (21:27)
[2017-06-15] MEDS: TOLTERODINE (DETROL) 2 MG TAB PO (21:27)
[2017-06-16 01:16] LABS: ANION GAP 3 MEQ/L (8-16); BLOOD UREA NITROGEN 13 MG/DL (7-18); CALCIUM LEVEL 7.6 MG/DL (8.5-10.1); CARBON DIOXIDE LEVEL 27 MEQ/L (21-32); CHLORIDE LEVEL 114 MEQ/L (98-107); CREATININE FOR GFR 0.62 MG/DL (0.55-1.30); GLOMERULAR FILTRATION RATE > 60.0 (>51); GLUCOSE, FASTING 85 MG/DL (70-100); POTASSIUM SERUM 4.1 MEQ/L (3.5-5.1); SODIUM LEVEL 144 MEQ/L (136-145)
[2017-06-16] MEDS: NS 1,000 ML IV ×2 (05:35→11:06)
[2017-06-16 07:42] LABS: HEMATOCRIT 29.7 % (36.0-47.0); HEMOGLOBIN 9.2 g/dl (12.0-15.5); MEAN CORPUSCULAR HEMOGLOBIN 27.2 pg (27.0-33.0); MEAN CORPUSCULAR VOLUME 87.9 fl (80.0-96.0); PLATELET COUNT, AUTOMATED 213 10^3/uL (150-450); RED BLOOD COUNT 3.38 10^6/uL (4.00-5.40); RED CELL DISTRIBUTION WIDTH 14.3 % (11.5-14.5); WHITE BLOOD COUNT 7.1 10^3/uL (4.0-10.0)
[2017-06-16 08:03] LABS: ANION GAP 6 MEQ/L (8-16); BLOOD UREA NITROGEN 10 MG/DL (7-18); CALCIUM LEVEL 7.5 MG/DL (8.5-10.1); CARBON DIOXIDE LEVEL 25 MEQ/L (21-32); CHLORIDE LEVEL 114 MEQ/L (98-107); CREATININE FOR GFR 0.51 MG/DL (0.55-1.30); GLOMERULAR FILTRATION RATE > 60.0 (>51); GLUCOSE, FASTING 85 MG/DL (70-100); SODIUM LEVEL 145 MEQ/L (136-145)
[2017-06-16] MEDS: IPRATROPIUM 0.5MG/ALBUTEROL 2.5MG INH SOL UD 3ML (DUONEB)(J7620) NEB ×4 (08:08→20:00)
[2017-06-16] MEDS: ALVIMOPAN 12 MG CAPSULE (ENTEREG) PO ×2 (09:18→20:36)
[2017-06-16] MEDS: PANTOPRAZOLE 40MG INJ (PROTONIX) (C9113) IV (09:18)
[2017-06-16] MEDS: ACETAMINOPHEN TAB 650MG DOSE (2X325MG) PO (11:25)
[2017-06-16] MEDS: KETOROLAC 30 MG/ML VIAL (J1885) IV ×2 (14:15→20:36)
[2017-06-16] MEDS: FLUoxetine 20 MG CAP PO (20:36)
[2017-06-16] MEDS: TOLTERODINE (DETROL) 2 MG TAB PO (20:37)
[2017-06-17] MEDS: KETOROLAC 30 MG/ML VIAL (J1885) IV ×2 (03:50→10:55)
[2017-06-17] MEDS: traMADol 50 MG TAB PO ×2 (06:02→15:15)
[2017-06-17 07:44] LABS: HEMATOCRIT 29.1 % (36.0-47.0); HEMOGLOBIN 9.4 g/dl (12.0-15.5); MEAN CORPUSCULAR HEMOGLOBIN 27.4 pg (27.0-33.0); MEAN CORPUSCULAR HGB CONC 32.3 g/dl (32.0-36.5); MEAN CORPUSCULAR VOLUME 84.8 fl (80.0-96.0); PLATELET COUNT, AUTOMATED 212 10^3/uL (150-450); RED BLOOD COUNT 3.43 10^6/uL (4.00-5.40); RED CELL DISTRIBUTION WIDTH 13.9 % (11.5-14.5)
[2017-06-17] MEDS: IPRATROPIUM 0.5MG/ALBUTEROL 2.5MG INH SOL UD 3ML (DUONEB)(J7620) NEB (07:47)
[2017-06-17] MEDS: PANTOPRAZOLE 40MG INJ (PROTONIX) (C9113) IV (08:41)
[2017-06-17] MEDS: ALVIMOPAN 12 MG CAPSULE (ENTEREG) PO (08:41)
[2017-06-17] MEDS: ACETAMINOPHEN TAB 650MG DOSE (2X325MG) PO (18:12)
[2017-06-17] MEDS: TOLTERODINE (DETROL) 2 MG TAB PO (20:55)
[2017-06-17] MEDS: FLUoxetine 20 MG CAP PO (20:56)
[2017-06-18] MEDS: traMADol 50 MG TAB PO (06:25)
[2017-06-18] MEDS ORDERED: PANTOPRAZOLE 40MG TAB (PROTONIX) PO (09:00)
[2017-06-18] MEDS: ACETAMINOPHEN TAB 650MG DOSE (2X325MG) PO (11:49)
== END 2017-06-18 13:55 | disposition home or self-care (01) | DRG 221 ==
LOC: M OR 08:59 → M PED 16:30
PROC: 0DBN4ZZ Excision of Sigmoid Colon, Percutaneous Endoscopic Approach (ICD-10-PCS; principal; 2017-06-14 10:02)
DX: K57.32 Diverticulitis of large intestine without perforation or abscess without bleeding (principal); F32.9 Major depressive disorder, single episode, unspecified; R32 Unspecified urinary incontinence; F41.9 Anxiety disorder, unspecified; E78.5 Hyperlipidemia, unspecified; D64.9 Anemia, unspecified; Z90.49 Acquired absence of other specified parts of digestive tract; Z79.899 Other long term (current) drug therapy

== ENCOUNTER → 2017-09-27 | Outpatient (REF) | payer BC | LOC: M SFHCWAGY 15:16 | DX: N39.46 Mixed incontinence (principal) | CPT/HCPCS: 87086 ==

== ENCOUNTER → 2017-10-20 | Outpatient (REF) | payer BC ==
[2017-10-20 14:08] LABS: APPEARANCE, URINE CLEAR (CLEAR); BACTERIA, URINE AUTO NEGATIVE (NEGATIVE); BILIRUBIN, URINE AUTO NEGATIVE (NEGATIVE); BLOOD, URINE BLOOD NEGATIVE (NEGATIVE); COLOR, URINE STRAW (YELLOW); GLUCOSE, URINE (UA) AUTO NEGATIVE (NEGATIVE); KETONE, URINE AUTO NEGATIVE (NEGATIVE); LEUKOCYTE ESTERASE, URINE AUTO NEGATIVE (NEGATIVE); NITRITE, URINE AUTO NEGATIVE (NEGATIVE); PROTEIN, URINE AUTO NEGATIVE (NEGATIVE); RBC, URINE AUTO 0 /HPF (0-3); SQUAMOUS EPITHELIAL CELL UR AU 0 /HPF (0-6); UROBILINOGEN, URINE AUTO 0.2 mg/dL (0.0-2.0); WBC, URINE AUTO 1 /HPF (0-3)
== END ==
LOC: M SMT 13:20
DX: N39.46 Mixed incontinence (principal)
CPT/HCPCS: 81001

== ENCOUNTER → 2018-04-18 | Outpatient (REF) | payer BC ==
[~2018-04-18] MED LIST changes: +AMOX875T2 PO; +AUGM875T28 PO; +CIPR-249 PO; +DETR1TAB3 PO; +FLUC150T PO; +FLUO40CA PO; -LIDOCAINE 2% INJ 100 MG/5 ML SDV (FOR ANES.) As Ordered; -METOCLOPRAMIDE INJ 10MG/2ML VIAL (J2765) As Ordered; -MIDAZOLAM INJ 2 MG/2 ML VIAL (J2250) As Ordered; +MULTCAP PO; +OMEP40CA2 PO; -ONDANSETRON 4MG/2ML VIAL (J2405) As Ordered; -PROPOFOL 200 MG/20 ML VIAL As Ordered; -ROCURONIUM BROMIDE 50 MG/5 ML VIAL As Ordered; +TRAM50TA2 PO; +VESI10TA2 PO; +[UNRECOGNIZED DRUG - CODE] TD; +[UNRECOGNIZED DRUG - OTHER] PO; -dexameTHASONE 4 MG/ML 1ML VIAL (J1100) As Ordered; -fentaNYL 250 MCG/5 ML INJECTION (J3010) As Ordered
[2018-04-21 14:17] LABS: HPV HYBRID CAPTURE II Negative (Negative)
== END ==
LOC: M SFHCWAGY 16:02
PROVIDERS: ATTEND Nurse Practitioner Family
DX: Z12.4 Encounter for screening for malignant neoplasm of cervix (principal); Z11.51 Encounter for screening for human papillomavirus (HPV); N95.2 Postmenopausal atrophic vaginitis
CPT/HCPCS: 87624; G0123

== ENCOUNTER → 2018-04-18 | Outpatient (CLI) | payer BC ==
--- NOTE | 2018-04-18 16:44 | REPMRS ---
Patient History The patient states she had a clinical breast exam in 03/2018. Patient is postmenopausal. Family history of prostate cancer at age 70 in father, prostate cancer at age 60 in brother. Took unspecified hormones for 1 year. Digital Woman Screen Mammo: April 18, 2018 - Exam #: [id number] Bilateral CC and MLO view(s) were taken. Technologist: Tia Dang, Technologist Prior study comparison: November 27, 2014, digital woman screen mammo performed at [facility]. September 11, 2013, digital woman screen mammo performed at [facility]. FINDINGS: The breast tissue is heterogeneously dense. This may lower the sensitivity of mammography. There has been no change in the appearance of the mammogram from the prior studies. There is a moderate amount of residual fibroglandular tissue which is fairly symmetric. There is no interval development of dominant mass, architectural distortion, or clustered microcalcification typical of malignancy. There are scattered, small, benign calcifications of doubtful clinical significance. Scattered lymph nodes are seen in the axilla. 3-D tomosynthesis shows no additional findings. The patient's Tyrer-Cuzick lifetime risk assessment score is 9.9 %. No significant changes when compared with prior studies. Assessment: BI-RADS/ACR category 2 mammogram. Benign Findings. Recommendation Routine screening mammogram in 1 year (for women over age 40). This mammogram was interpreted with the aid of an FDA-approved computer-aided dectection system. A. Negative x-ray reports should not delay biopsy if a dominant or clinically suspicious mass is present. B. Four to eight percent of cancers are not identified by mammography. C. Adenosis and dense breast may obscure an underlying neoplasm. Electronically Signed By: Arnold Mitchell MD 04/18/18 [id number]
== END ==
LOC: M WHC 15:36
PROVIDERS: ATTEND Nurse Practitioner Family
DX: Z12.31 Encounter for screening mammogram for malignant neoplasm of breast (principal); Z80.42 Family history of malignant neoplasm of prostate

== ENCOUNTER 2019-10-17 17:48 | Emergency (ER) | payer BC ==
[~2019-10-17] VITALS: Ht 157.5 cm; Wt 78.7 kg
[~2019-10-17 17:48] MED LIST changes: -OMEP40CA2 PO; +OMEP40CA97 PO
[2019-10-17] MEDS ORDERED: FLUO20CA22 PO (18:24)
[2019-10-17 19:36] LABS: BASO # 0.1 10^3/uL (0.0-0.2); BASO % 0.6 % (0.0-1.0); EOS # 0.2 10^3/uL (0.0-0.5); HEMATOCRIT 39.8 % (36.0-47.0); HEMOGLOBIN 12.7 g/dl (12.0-15.5); LYMPH # 1.8 10^3/uL (1.5-5.0); LYMPH % 22.6 % (24.0-44.0); MEAN CORPUSCULAR HEMOGLOBIN 28.2 pg (27.0-33.0); MEAN CORPUSCULAR HGB CONC 31.9 g/dl (32.0-36.5); MEAN CORPUSCULAR VOLUME 88.4 fl (80.0-96.0); MONO # 0.6 10^3/uL (0.0-0.8); MONO % 7.4 % (0.0-5.0); NEUTROPHILS # 5.5 10^3/uL (1.5-8.5); NEUTROPHILS % 67.2 % (36.0-66.0); PLATELET COUNT, AUTOMATED 292 10^3/uL (150-450); WHITE BLOOD COUNT 8.2 10^3/uL (4.0-10.0)
--- NOTE | 2019-10-17 19:47 | REPVR ---
PROCEDURE INFORMATION: Exam: XR Chest, 2 Views Exam date and time: 10/17/2019 7:28 PM Age: 58 years old Clinical indication: Chest pain; Type not specified; Additional info: Abdominal pain TECHNIQUE: Imaging protocol: XR of the chest Views: 2 views. COMPARISON: No relevant prior studies available. FINDINGS: Lungs: Degree of inflation of the lungs is normal. No evidence of pulmonary edema. No focal airspace process. No concerning parenchymal lung mass. Pleural space: No pleural effusion or pneumothorax. Heart/Mediastinum: Cardiac silhouette appears normal. No mediastinal adenopathy or hilar mass. Bones/joints: Osseous structures show no acute or concerning abnormality. IMPRESSION: No active or focal cardiopulmonary process. Electronically signed by: Ayo Zavala On 10/17/2019 19:48:06 PM
[2019-10-17 19:51] LABS: BILIRUBIN, URINE MANUAL NEGATIVE (NEGATIVE); GLUCOSE, URINE (UA) MANUAL NEGATIVE (NEGATIVE); KETONE, URINE MANUAL NEGATIVE (NEGATIVE); UROBILINOGEN, URINE MANUAL NORMAL (NORMAL)
[2019-10-17 20:05] LABS: SQUAMOUS EPITHELIAL CELL URINE SMALL AMOUNT /hpf (SMALL AMT)
[2019-10-17 20:10] LABS: BACTERIA, URINE NONE SEEN; HYALINE CAST, URINE NONE SEEN /lpf (0-1)
[2019-10-17 20:24] LABS: ALBUMIN 4.1 GM/DL (3.2-5.2); ALT/SGPT 19 U/L (12-78); BILIRUBIN,DIRECT 0.1 MG/DL (0.0-0.2); BILIRUBIN,TOTAL 0.4 MG/DL (0.2-1.0); BLOOD UREA NITROGEN 15 MG/DL (7-18); CALCIUM LEVEL 9.3 MG/DL (8.5-10.1); CARBON DIOXIDE LEVEL 30 MEQ/L (21-32); CHLORIDE LEVEL 105 MEQ/L (98-107); CK-MB VALUE MASS < 1.0 NG/ML (<3.6); CPK CREATINE PHOSPHOKINASE 59 U/L (26-192); GLOMERULAR FILTRATION RATE > 60.0 (>51); GLUCOSE, FASTING 91 MG/DL (70-100); LIPASE 142 U/L (73-393); MB/CK RELATIVE INDEX 1.69 (< OR =4); POTASSIUM SERUM 3.9 MEQ/L (3.5-5.1); SODIUM LEVEL 139 MEQ/L (136-145); TOTAL PROTEIN 7.7 GM/DL (6.4-8.2); TROPONIN I < 0.02 NG/ML (< 0.10)
[2019-10-18 00:20] VITALS: BP 112/62
[2019-10-18 00:30] LABS: CK-MB VALUE MASS < 1.0 NG/ML (<3.6); CPK CREATINE PHOSPHOKINASE 52 U/L (26-192); MB/CK RELATIVE INDEX 1.92 (< OR =4); TROPONIN I < 0.02 NG/ML (< 0.10)
--- NOTE | 2019-11-07 14:30 | ECGEPIP ---
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
--- NOTE | 2019-11-25 19:44 | ECGEPIP ---
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
== END 2019-10-18 00:42 | disposition home or self-care (01) ==
LOC: M ED 17:48
DX: R07.89 Other chest pain (principal); F33.9 Major depressive disorder, recurrent, unspecified; F41.9 Anxiety disorder, unspecified; Z79.899 Other long term (current) drug therapy

== ENCOUNTER → 2019-10-29 | Outpatient (CLI) | payer BC ==
[~2019-10-29] MED LIST changes: +FLUO20CA22 PO
--- NOTE | 2019-11-27 11:33 | REP ---
PELVIC ULTRASOUND HISTORY: Menopausal and female climacteric states. No comparison studies. FINDINGS: Real-time sonographic evaluation of pelvis performed utilizing transabdominal and endovaginal technique. Urinary bladder measures 5.5 x 5.8 x 7.4 cm. Uterus is diffusely heterogeneous in echotexture. It measures 4.8 x 3.0 x 3.4 cm. Endometrial thickness is essentially upper limits of normal and thickness at 4-5 mm in AP dimension. No endometrial fluid collection is seen. Uterus is retroverted. Right ovary measures 2.0 x 1.1 x 1.4 cm. There is no evidence of right ovarian torsion with duplex Doppler evaluation, RI = 0.52. Small cystic structure in the right ovary measures 1 cm in diameter. Left ovary could not be visualized due to extensive bowel in the left adnexa. Otherwise no adnexal masses seen. No free fluid is seen. IMPRESSION: Endometrial thickness 4-5 mm, essentially at the upper limits of normal. Uterus is heterogeneous in echotexture and retroverted. There is a 1 cm cystic structure in the right ovary with no other evidence of right ovarian abnormality. Left ovary could not be visualized due to extensive bowel in the left adnexal region. Otherwise no evidence of adnexal mass or free fluid. MTDD
== END ==
LOC: M WHC 15:51
PROVIDERS: ATTEND Obstetrics & Gynecology
DX: N95.1 Menopausal and female climacteric states (principal)

== ENCOUNTER → 2021-03-30 | Outpatient (CLI) | payer BC ==
[~2021-03-30] MED LIST changes: -FLUC150T PO; +FLUC150T9 PO; +OMEP40CA4 PO; -OMEP40CA97 PO
== END ==
LOC: M WHC 07:59
PROVIDERS: ATTEND Advanced Practice Midwife
DX: N60.01 Solitary cyst of right breast (principal); Z12.31 Encounter for screening mammogram for malignant neoplasm of breast
CPT/HCPCS: 76642; 77066; G0279

== ENCOUNTER → 2021-03-30 | Outpatient (REF) | payer BC | LOC: M SFHCWAGY 12:43 | PROVIDERS: ATTEND Advanced Practice Midwife | DX: Z12.4 Encounter for screening for malignant neoplasm of cervix (principal); R87.612 Low grade squamous intraepithelial lesion on cytologic smear of cervix (LGSIL) | CPT/HCPCS: 87624; G0123 ==

== ENCOUNTER → 2021-05-13 | Outpatient (REF) | payer BC | LOC: M SFHCWAGY 10:48 | PROVIDERS: ATTEND Specialist | DX: R87.612 Low grade squamous intraepithelial lesion on cytologic smear of cervix (LGSIL) (principal) ==

== ENCOUNTER → 2021-08-18 | Outpatient (CLI) | payer BC | LOC: M SOG 15:10 | PROVIDERS: ATTEND Orthopaedic Surgery Adult Reconstructive Orthopaedic Surgery | DX: M25.561 Pain in right knee (principal) ==

== ENCOUNTER → 2021-10-21 | Outpatient (CLI) | payer BC | LOC: M RAD 07:37 | PROVIDERS: ATTEND Orthopaedic Surgery Adult Reconstructive Orthopaedic Surgery | DX: M23.91 Unspecified internal derangement of right knee (principal); M25.461 Effusion, right knee ==

== ENCOUNTER → 2021-11-04 | Outpatient (CLI) | payer BC | LOC: M LABSMTC 09:21 | PROVIDERS: ATTEND Anesthesiology | DX: Z01.812 Encounter for preprocedural laboratory examination (principal); Z11.52 Encounter for screening for COVID-19 ==

== ENCOUNTER 2021-11-09 07:26 | Day surgery (SDC) | payer BC ==
[~2021-11-09] VITALS: Ht 157.5 cm; Wt 84.7 kg
[~2021-11-09 07:26] MED LIST changes: +ACETAMINOPHEN 500 MG TAB PO ONE; +ATOR1TAB19; +BUPR-71 PO; +CelecoXIB 400 MG CAP PO ONE; +GABAPENTIN 300 MG CAP PO ONE; +ONDANSETRON 4MG 2ML VIAL IV ONE; +PANT40TA29
[2021-11-09] MEDS ORDERED: LR 1,000 ML IV SCH ×2 (07:45→09:50)
[2021-11-09] MEDS ORDERED: LIDOCAINE 2% 100MG/5ML SDV (FOR ANES.) As Ordered ONE (07:58)
[2021-11-09] MEDS ORDERED: MIDAZOLAM INJ 2MG/2ML VIAL (J2250 PER 1MG) As Ordered ONE (07:58)
[2021-11-09] MEDS ORDERED: propofoL 200 MG/20 ML VIAL As Ordered ONE (07:58)
[2021-11-09] MEDS ORDERED: fentaNYL 100 MCG/2 ML INJECTION As Ordered ONE (07:58)
[2021-11-09] MEDS ORDERED: BUPIVACAINE/EPIN 0.5% 30 ML VIAL As Ordered ONE (08:38)
[2021-11-09] MEDS ORDERED: EPINEPHrine INJ 1 MG/ML 1ML AMP As Ordered ONE (08:38)
[2021-11-09] MEDS ORDERED: ePHEDrine SULFATE 25 MG/5 ML(5MG/ML) SYRINGE As Ordered ONE (09:03)
[2021-11-09] MEDS ORDERED: dexameTHASONE 4 MG/ML 1ML VIAL (J1100 PER 1MG) As Ordered ONE (09:05)
[2021-11-09] MEDS ORDERED: EPINEPHrine 1MG/ML INJ 30ML MD-VIAL As Ordered ONE (09:06)
[2021-11-09] MEDS ORDERED: PHENYLephrine 500MCG 5ML (100MCG/ML) SYRINGE As Ordered ONE (09:07)
[2021-11-09] MEDS ORDERED: ONDANSETRON 4MG 2ML VIAL As Ordered ONE (09:17)
[2021-11-09] MEDS ORDERED: fentaNYL 100 MCG/2 ML INJECTION IV PRN (09:50)
[2021-11-09] MEDS ORDERED: ONDANSETRON 4MG 2ML VIAL IV PRN (09:50)
[2021-11-09] MEDS: MORPHINE 2 MG/ML 1ML VIAL IV PRN ×3 (10:34→11:09)
[2021-11-09] MEDS: oxyCODONE 5MG TAB PO PRN ×2 (10:35→11:09)
[2021-11-09 11:30] VITALS: BP 96/54
== END 2021-11-09 13:46 | disposition home or self-care (01) ==
LOC: M SDC 07:26
PROVIDERS: ATTEND Orthopaedic Surgery Adult Reconstructive Orthopaedic Surgery
DX: S83.241A Other tear of medial meniscus, current injury, right knee, initial encounter (principal); Y92.89 Other specified places as the place of occurrence of the external cause; F32.A Depression, unspecified; K57.92 Diverticulitis of intestine, part unspecified, without perforation or abscess without bleeding; Z79.899 Other long term (current) drug therapy; Z90.49 Acquired absence of other specified parts of digestive tract
CPT/HCPCS: 29881; 97116; J1100; J2250; J2270; J2370; J2405; J3010

== ENCOUNTER → 2021-12-31 | Outpatient (CLI) | payer BC ==
[~2021-12-31] MED LIST changes: -ACETAMINOPHEN 500 MG TAB PO ONE; -CelecoXIB 400 MG CAP PO ONE; -GABAPENTIN 300 MG CAP PO ONE; -ONDANSETRON 4MG 2ML VIAL IV ONE
[2021-12-31 16:28] LABS: BLOOD UREA NITROGEN 10 MG/DL (7-18); CALCIUM LEVEL 9.4 MG/DL (8.8-10.2); CARBON DIOXIDE LEVEL 28 MEQ/L (21-32); CHLORIDE LEVEL 106 MEQ/L (98-107); CREATININE FOR GFR 0.78 MG/DL (0.55-1.30); GLOMERULAR FILTRATION RATE > 60.0 (>45); GLUCOSE, FASTING 96 MG/DL (70-100); POTASSIUM SERUM 4.3 MEQ/L (3.5-5.1); SODIUM LEVEL 139 MEQ/L (136-145)
== END ==
LOC: M PLAIMG 12:05
PROVIDERS: ATTEND Family Medicine
DX: R79.89 Other specified abnormal findings of blood chemistry (principal)

== ENCOUNTER 2022-09-12 10:16 | Emergency (ER) | payer BC ==
[~2022-09-12] VITALS: Ht 157.5 cm; Wt 80.7 kg
[2022-09-12] MEDS ORDERED: NS 1,000 ML IV ONE (11:15)
[2022-09-12] MEDS ORDERED: KETOROLAC 30 MG/ML 1ML VIAL IV ONE (11:15)
[2022-09-12 11:24] LABS: BASO % 0.5 % (0.0-1.0); EOS # 0.2 10^3/uL (0.0-0.5); EOS % 2.6 % (0.0-3.0); HEMATOCRIT 38.3 % (36.0-47.0); HEMOGLOBIN 12.3 g/dl (12.0-15.5); LYMPH # 1.5 10^3/uL (1.5-5.0); LYMPH % 19.1 % (24.0-44.0); MEAN CORPUSCULAR HEMOGLOBIN 27.6 pg (27.0-33.0); MEAN CORPUSCULAR HGB CONC 32.1 g/dl (32.0-36.5); MEAN CORPUSCULAR VOLUME 85.9 fl (80.0-96.0); MONO # 0.7 10^3/uL (0.0-0.8); MONO % 8.6 % (2.0-8.0); NEUTROPHILS # 5.6 10^3/uL (1.5-8.5); PLATELET COUNT, AUTOMATED 294 10^3/uL (150-450); RED BLOOD COUNT 4.46 10^6/uL (4.00-5.40); WHITE BLOOD COUNT 8.1 10^3/uL (4.0-10.0)
[2022-09-12] MEDS ORDERED: ISOVUE-370 76% 100ML VIAL As Ordered ONE (11:26)
[2022-09-12 11:49] LABS: ALBUMIN 3.5 G/DL (3.2-5.2); BILIRUBIN,DIRECT 0.2 MG/DL (<0.4); BILIRUBIN,TOTAL 0.5 MG/DL (0.3-1.2); MAGNESIUM LEVEL 1.8 MG/DL (1.8-2.4); TOTAL PROTEIN 6.6 G/DL (5.7-8.2)
[2022-09-12 11:55] LABS: RSV AMPLIFICATION NEGATIVE (NEGATIVE)
[2022-09-12] MEDS ORDERED: LOPE1CAP5 PO (14:57)
[2022-09-12 15:00] VITALS: BP 125/67; TEMP 98.5; O2SAT 100
== END 2022-09-12 15:14 | disposition home or self-care (01) ==
LOC: M ED 10:16
DX: R19.7 Diarrhea, unspecified (principal); F41.9 Anxiety disorder, unspecified; F32.A Depression, unspecified; K21.9 Gastro-esophageal reflux disease without esophagitis; E78.5 Hyperlipidemia, unspecified; Z79.899 Other long term (current) drug therapy
CPT/HCPCS: 74177; 80047; 80076; 83605; 83690; 83735; 85025; 87507; 87631; 96374; 99283; J1885; Q9967